=== PATIENT | female | born 1940 | race Caucasian/White ===

== ENCOUNTER → 2018-02-06 | Day surgery (SDC) | payer MEDICARE ==
[~2018-02-06] MED LIST: ACETAMINOPHEN 1000 MG/100 ML 100 ML IV ONE; BENI40TA31 PO; BUPIVACAINE/EPINEPHRINE 0.25% PF 10 ML VIAL ONE; COUM5TAB PO; GLUCTAB OR; LACTATED RINGER'S 1000 ML INJ 1,000 ML ONE; MIDAZOLAM HCL 2 MG/2 ML VIAL ONE; OXYC-360 PO; PROPOFOL 500 MG/50 ML BTL IV ONE; ROSU10 PO; SODIUM CHLORIDE 0.9% INJ 10 ML ONE; ceFAZolin INJ 1,000 MG VIAL ONE
--- NOTE | 2018-02-06 15:21 | TN ---
cc: Atif Charlton MD DATE OF SURGERY: 02/06/2018 DATE OF PROCEDURE: 02/06/2018 PREOPERATIVE DIAGNOSIS: Left-sided breast cancer, in need of chemotherapy for HER-2 positivity. POSTOPERATIVE DIAGNOSIS: Left-sided breast cancer, in need of chemotherapy for HER-2 positivity. PROCEDURE PERFORMED: Placement of a left-sided Infusaport under fluoroscopic guidance. ANESTHESIA: TIVA. SURGEON: Atif Charlton MD INDICATION FOR PROCEDURE: The patient is a pleasant 77-year-old female who was found to have breast cancer, HER-2 positivity. Plans were made for chemotherapy by her oncologist. DESCRIPTION OF PROCEDURE: The patient was taken to the operating room and placed in supine position. After anesthesia, her left chest is prepped with Betadine. A timeout was done. She was given preoperative antibiotics. Under fluoroscopic guidance, we were able to cannulate the subclavian vein and thread the guidewire through the needle into the superior vena cava. A subcutaneous pocket is then made. The introducer and dilator were then threaded over the guidewire and the catheter was threaded through the introducer under fluoroscopic guidance to about 20 cm so it lays in the superior vena cava. The catheter was then cut to size. The subcutaneous pocket then accommodates the port and is connected in the typical fashion to the catheter to get a good seal. It aspirated blood quite easily and flushed with a heparin saline solution. We then secured to the deep layer and confirm it in the superior vena cava under fluoroscopic guidance. We then closed the deep layer with 4-0 Vicryl, and the skin was closed with 4-0 Monocryl. A sterile bandage was applied. The patient tolerated the procedure well having no immediate postop complications. Atif Charlton MD JDB/KD , 03:04 PM , 03:19 PM
== END | disposition home or self-care (01) ==
LOC: ESDC 12:49
PROVIDERS: ATTEND Surgery
DX: C50.912 Malignant neoplasm of unspecified site of left female breast (principal)
CPT/HCPCS: 00532; 36561; 76000; 77001; C1788; J0131; J0690; J2250; J3010; J7120